=== PATIENT | female | born 1950 | race Caucasian/White ===

== ENCOUNTER 2017-09-29 09:32 | Observation (INO) ==
[2017-09-29] MEDS ORDERED: Albuterol 2.5 MG/3 ML NEBULIZER IH ONE (09:50)
[2017-09-29] MEDS ORDERED: CeFAZolin Syr 2,000MG/20 ML 2,000 MG/20 ML SYRINGE IVPB ONE (09:50)
--- NOTE | 2017-09-29 09:54 | Anesthesia Evaluation PreOp ---
Date of Encounter: 09/29/17 Time of Encounter: 09:52 - Past History Planned Operation: ACDF C6-7 Cardiac History: Denies any Significant Hx Pulmonary History: Smoker (50 years), COPD SENIOR TRIAL ATTORNEY History: TIA Other Medical History: GERD, Other (anxiety/depression) Anesthesia History: No Prior Anesthetic Complications, Past Anesthesia ( hysterectomy) Alcohol Use: heavy Drug use: none Medications and Allergies Aspirin 81 mg PO DAILY 10/22/16 [History] Omeprazole [PriLOSEC] 20 mg PO DAILY 10/22/16 [History] 3 Allergy/AdvReac Type Severity Reaction Status Date / Time No Known Allergies Allergy Verified 09/29/17 10:17 - Meds/Allergy Pre-op Review Medications Reviewed: Yes Allergies Reviewed: Yes Beta Blockers on Current Med List: No Anesthesia Results - Labs Laboratory Tests 09/24/17 09/24/17 09/24/17 11:25 11:25 11:36 WBC 7.9 Hgb 15.3 Hct 45.5 H Plt Count 316 PT 10.7 INR 1.0 APTT 30.3 Sodium 135 L Potassium 4.0 BUN 10 Creatinine 0.53 L - Imaging EKG: report reviewed (03/28/2017 SINUS RHYTHM OLD ANTEROSEPTAL MYOCARDIAL INFARCTION) Additional studies: 10/02/2011 Echo Impressions: Left Ventricle * LVEF 65 % * Left Ventricle: Normal size, function and thickness. My Category * No valvular abnormalities Interatrial Septum * Small PFO with right to left shunt. Anesthesia Exam O2 Sat Height 1.6 m Height 1.6 m Weight 84.822 kg Weight 84.822 kg O2 Sat by Pulse Oximetry 93 Vital Signs Temp Pulse Resp BP Pulse Ox 97.8 F 86 18 139/75 93 09/29/17 09:52 09/29/17 09:52 09/29/17 09:52 09/29/17 09:52 09/29/17 09:52 Height: 5'3'' Weight: 187 lbs NPO (# of Hours): 8 Pain Scale: 0 Pain Scale Used: Numeric (1 - 10) - HEENT Pupil (Motor): EOMI Mallampati: II Teeth: Edentulous (lower implant stud) Oral Opening: Greater than 3 - SENIOR TRIAL ATTORNEY LOC: Oriented SENIOR TRIAL ATTORNEY Motor: Normal RUE, Normal RLE, Normal LLE, Normal Face, Deficit LUE SENIOR TRIAL ATTORNEY Sensory: Normal: RUE, RLE, LLE, Face, Deficit: LUE - Cardiac Rhythm: Regular Murmur: None - Pulmonary Breath Sounds: bilateral Clear Respiratory Effort: Symmetrical Anesthesia Assess/Plan ASA Score: 3 Modified Malathi Scale for Level of Consciousness: Cooperative, oriented, and tranquil Anesthetic Plan: General Monitoring Plan: Standard Monitors Recovery Plan: PACU
[2017-09-29] MEDS ORDERED: Ringers Solution, Lactated 1,000 ML IVC SCH ×2 (10:00→15:09)
--- NOTE | 2017-09-29 10:56 | History & Physical Report ---
Date of Encounter: 09/29/17 Time of Encounter: 10:55 24 Hour HP Update - Instructions Instructions: If the History and Physical is less than 30 days old and was completed prior to A.M. admission and or procedure and has NOT been updated on calendar day of procedure please complete this update prior to performing procedure. - Update Patient reports changes in Medical Condition: No Changes in examination, assessment, or condition: No Changes in Medication: No Preop tests/diagnostics Reviewed: Yes Pre-Op MRSA Screen: Negative Surgery Remains Indicated: Yes Consent for Planned Operative Procedure(s) Verified: Yes - Pre-Operative Checklist Preoperative Checklist Indicated: No Prophylactic Antibiotic Ordered: Yes Home Medications Include Beta Debbie: No Beta Debbie Taken Today (Day of Surgery): No Beta Debbie Taken Yesterday (Day Prior to Surgery): No Is VTE Prophylaxis Indicated?: Yes
[2017-09-29] MEDS ORDERED: Bacitracin 50,000 UNIT, Polymyxin B Sulfate 500,000 UNIT, Sodium Chloride IRRigation 1,... IR ONE (11:25)
[2017-09-29] MEDS ORDERED: Lidocaine -MPF 4% 5 ML AMPUL ONE (11:48)
[2017-09-29] MEDS ORDERED: *HR* Midazolam HCl 5 MG/5 ML VIAL IVP ONE (12:18)
[2017-09-29] MEDS ORDERED: Dexamethasone 4 MG/ML VIAL ONE (12:18)
[2017-09-29] MEDS ORDERED: *HR* FentaNYL (PF) 100 MCG/2 ML VIAL ONE ×2 (12:18→13:39)
[2017-09-29] MEDS ORDERED: Propofol 500 MG/50 ML INFUS..BTL ONE ×2 (12:18→12:42)
[2017-09-29] MEDS ORDERED: Lidocaine -MPF 2% 2 ML VIAL ONE (12:18)
[2017-09-29] MEDS ORDERED: *HR* PHENYLEPHRINE 1,000 MCG/10 ML SYRINGE IVP ONE (12:18)
[2017-09-29] MEDS ORDERED: *HR* Remifentanil 2 MG VIAL IVP ONE (12:18)
[2017-09-29] MEDS ORDERED: Ondansetron 4 MG/2 ML VIAL ONE (12:18)
[2017-09-29] MEDS ORDERED: *HR* Propofol 200 MG/20 ML VIAL IVP ONE (12:18)
[2017-09-29] MEDS ORDERED: Ondansetron 4 MG/2 ML VIAL IVP ONE (13:05)
[2017-09-29] MEDS ORDERED: MORPHINE SUL Oral CONC 10 MG/0.5 ML ORAL.SYG SL PRN (13:05)
[2017-09-29] MEDS ORDERED: *HR* Labetalol 20 MG/4 ML SYRINGE IVP PRN (13:05)
[2017-09-29] MEDS ORDERED: *HR* OxyCODONE Immed Rel 5 MG TABLET PO PRN (13:05)
[2017-09-29] MEDS ORDERED: *HR* Meperidine 25 MG/ML SYRINGE IVP PRN (13:05)
[2017-09-29] MEDS ORDERED: *HR* Promethazine 25 MG/ML VIAL IVP PRN (13:05)
--- NOTE | 2017-09-29 13:33 | Orthopedic Operative Note ---
Date of procedure: 09/29/17 Pre-op diagnosis: Cervical stenosis, cervical radiculopathy, focal motor deficit Post-op diagnosis: same Operation/Findings: Anterior cervical decompression and fusion C6-7: The patient was brought to the operating room and placed supine on the operating room table. Successful general endotracheal anesthesia intubation was performed. Neurophysiologic monitoring personnel placed leads on the upper and lower extremities as well as the cranium for EMG monitoring purposes. Appropriate baseline potentials were noted by the neurophysiologic monitoring staff. Sexton catheter was placed prior to positioning. Compression boots and stockings were placed for deep vein thrombosis prophylaxis. Padding was also placed all bony prominences including the ulnar nerve near the medial epicondyles of the elbows were appropriately padded. Mild traction was placed on the bilateral shoulders and taped into place. Preoperative antibiotics were administered. The area from the mandible bilaterally to the upper thoraces was prepped and draped in the usual sterile fashion. A transverse incision was made at the level of the cricoid cartilage which is approximately 3 cm in length and extended from the midline of the cervical spine laterally towards the sternocleidomastoid muscle on the left. We then performed standard medial approach to the carotid sheath. Sponges were used to tease the fascial medial to the sternocleidomastoid muscle while carefully controlling and palpating the carotid artery. Using careful dissection we were able to get to the level of the anterior vertebral bodies and longus coli muscles. The spinal needle was placed at the appropriate C6-7 level, and intraoperative radiograph was obtained which was a cervical spine lateral radiograph. The needle and radiograph confirmed we were at the correct C6-7 operative level. We further exposed this level by using Bovie cautery under the medial edge of the longus coli muscles to allow them to be retracted approximately 2 mm laterally on each side. An 11 blade was used to perform anterior discectomy at the appropriate C6-7 level after an initial annulotomy of the anterior longitudinal ligament and annulus was performed. Further disc material was removed with pituitary Rongeurs. Subsequently, Synthes pins were placed at the C6 and C7 vertebral bodies respectively to provide distraction. We then used a Trimline cervical retractor which was placed in both medial and lateral as well as inferior superior direction to allow full visualization of the appropriate C6-7 disc and C6 and C7 vertebral bodies. The Leica microscope was brought to the field and the remainder of the procedure was performed under the guidance of this microscope. Using pituitary rongeurs and small curettes, various micro- instruments, a full discectomy was performed at the appropriate level. The posterior longitudinal ligament was encountered and appeared partially calcified. A portion of this ligament was removed. After complete and thorough discectomy and removal of spondylitic material was performed the endplates of the C6 and C7 vertebral bodies were prepared with a bur until allow bleeding of cancellous bone. An 8 mm trial graft was evaluated and appeared to fit quite well within the excised disc space. A cortico-cancellus allograft of 8 mm was utilized, carefully tapped into place within the excised disc space with the aid of a bone tamp. It was seated approximately 2 mm from the anterior edge of the cortex of the adjacent vertebral bodies. A cervical plate was then placed on the anterior aspect of the C6 and C7 vertebral bodies. The plate was placed in the midline position after drilling four 13 mm self tapping screws and inserting them. They were locked in place using standard Venture plate maneuvers. At this point a lateral radiograph of the cervical spine was obtained and showed satisfactory position of the graft and plate. The wound was copiously irrigated and bleeders encountered were cauterized using Bovie cautery. Platysma was closed with interrupted 2-0 Vicryl sutures. Running 3-0 Monocryl suture was used for skin closure. Sterile dressing was placed over the neck wound. The patient was transferred to a hospital bed and extubated. The patient was noted to be fully motor and sensory intact in the recovery room at the end of the procedure. The medications. All sponge instrument and needle counts were correct at the end of the procedure. Anesthesia: GETA Surgeon: Willy Jay Jr Was there an family law legal assistant present: No Estimated blood loss (cc): 9 Specimen: None Condition: stable Disposition: PACU
[2017-09-29] MEDS: *HR* FentaNYL (PF) 100 MCG/2 ML VIAL IVP PRN ×2 (14:03→14:13)
[2017-09-29] MEDS ORDERED: Acetaminophen 325 MG TABLET PO PRN (15:09)
[2017-09-29] MEDS ORDERED: Naloxone 0.4 MG/ML INJ IVP PRN (15:09)
[2017-09-29] MEDS ORDERED: Ondansetron 4 MG/2 ML VIAL IVP PRN (15:09)
--- NOTE | 2017-09-29 15:14 | Anesthesia Evaluation Post Op ---
Date of Encounter: 09/29/17 Time of Encounter: 14:45 - Vital Signs Vital Signs: Vital Signs/O2 Sat, Most Current Temp Pulse Resp BP Pulse Ox 97.0 F L 77 12 142/84 95 09/29/17 14:54 09/29/17 14:54 09/29/17 14:54 09/29/17 14:54 09/29/17 14:54 - Lungs Lungs: Clear Ascult./Percussion - Airway Airway: Non-obstructed - Cardiovascular Regular Rate - Mental Status Mental Status: Alert & Oriented, Answers Appropriately - Pain Pain Scale: 6 Pain Scale used: Numeric (1 - 10) - Nausea Vomiting Nausea Vomiting: Not Present - Hydration Hydration: Ice chips, Sexton catheter - Discharge PostOp Status: Transfer Patient to floor
[2017-09-29] MEDS: *HR* OxyCODONE Immed Rel 5 MG TABLET PO PRN ×2 (16:27→22:42)
[2017-09-29] MEDS: *HR* HYDROcodone/Acet 5/325 mg TABLET PO PRN (19:00)
[2017-09-29] MEDS: CeFAZolin Premix DUPLEX 2,000 MG/50 ML BAG IVPB SCH (19:42)
[2017-09-30] MEDS: *HR* HYDROcodone/Acet 5/325 mg TABLET PO PRN (03:04)
[2017-09-30] MEDS: CeFAZolin Premix DUPLEX 2,000 MG/50 ML BAG IVPB SCH (03:04)
[2017-09-30] MEDS: *HR* OxyCODONE Immed Rel 5 MG TABLET PO PRN (08:17)
[2017-09-30 08:43] VITALS: BP 140/80
--- NOTE | 2017-09-30 08:45 | Discharge Summary ---
Date of Encounter: 09/30/17 Time of Encounter: 08:43 - Discharge Diagnosis (1) Cervical stenosis of spinal canal Priority: Primary Status: Chronic (2) Cervical radiculopathy Priority: Secondary Status: Chronic - Discharge Medications Prescriptions: OxyCODONE Immed Rel [Roxicodone 5 MG] 5 mg PO Q6HR PRN 7 Days #30 tablet PRN Reason: Severe Pain Home Medications: Aspirin 81 mg PO DAILY 10/22/16 [History] Omeprazole [PriLOSEC] 20 mg PO DAILY 10/22/16 [History] OxyCODONE Immed Rel [Roxicodone 5 MG] 5 mg PO Q6HR PRN 7 Days #30 tablet [Rx] Allergies/Adverse Reactions: 3 Allergy/AdvReac Type Severity Reaction Status Date / Time No Known Allergies Allergy Verified 09/29/17 10:17 - Impressions ITS Impressions Cervical Spine X-Ray 09/29/17 12:40 IMPRESSION: Second intraoperative image demonstrating surgical probe along the anterior aspect of the C6-C7 disc space. Findings were discussed with Willy Jay at 12:53 pm on 09/29/2017. D/ / 09/29/2017 12:56:49 Alejandro Bauman MD / earnold Interpreting Provider: Alejandro Bauman MD Cervical Spine X-Ray 09/29/17 12:53 IMPRESSION: Anterior cervical spinal fusion of C6-7. D/ / Alejandro Bauman MD / Alejandro Bauman MD Interpreting Provider: Alejandro Bauman MD Date of admission: 09/29/17 15:10 Primary care physician: Prosper Young Consults: 09/29/17 15:09 Consult to Occupational Therapy [CONS] Routine Comment: Evaluate, develop and implement POC Reason for Consult: Postoperative rehabilitation Consult to Physical Therapy [CONS] Routine Comment: Evaluate, develop and implement POC Reason for Consult: Postoperative rehabilitation Consult to Spine Navigator [CONS] [CONS] Routine - Patient Status Disposition: Home, Self-Care Condition: Good Functional capacity at discharge: independent ambulation Overall status at discharge: patient is progressing back to baseline - Discharge Instructions Follow Up With: Prosper Young MD [Primary Care Provider] - - Diet and Activity Activity: as per physical therapy Diet: advance to your usual diet - Hospital Course Hospital course: Ms. Montalvo is a 67 year old femaleThe patient had an uneventful postoperative course. Progressed from intravenous analgesic needs to oral analgesic needs only. Remained neurovascularly intact and mobilized satisfactorily. All intraoperative and/or postoperative radiographic studies were satisfactory. Patient is discharged with plan for rehabilitation and follow-up in 2 weeks post discharge on analgesic medication and patient's home medications. - Time Spent with Patient Total time spent providing and/or coordinating discharge services: - VTE Documentation of Mechanical Device: Intermittent pneumatic compression device
[2017-09-30] MEDS ORDERED: Aspirin 81 MG TAB.CHEW PO SCH (09:00)
== END 2017-09-30 10:37 | disposition home or self-care (01) ==
LOC: SAMDAY 09:32 → INTOOBSV 15:10 → 3NENU 15:10
PROVIDERS: ADMIT Orthopaedic Surgery Orthopaedic Surgery of the Spine; ATTEND Orthopaedic Surgery Orthopaedic Surgery of the Spine

== ENCOUNTER 2020-05-02 07:34 | Observation (INO) ==
[2020-05-02] MEDS ORDERED: Aspirin 81 MG TAB.CHEW PO ONE (07:45)
[2020-05-02] MEDS ORDERED: 0.9 % Sodium Chloride 500 ML IVC ONE (07:45)
[2020-05-02 08:05] LABS: Basophils # 0.1 K/mcL (0.0-0.2); Basophils % 0.9 %; Eosinophils # 0.2 K/mcL (0.0-0.6); Eosinophils % 1.8 %; Hemoglobin 15.9 g/dL (11.5-15.4); Immature Granulocytes % 0.3 % (0-4); Lymphocytes # 3.1 K/mcL (0.6-4.6); Mean Corpuscular HGB Conc 33.8 g/dL (31.6-35.5); Mean Corpuscular Hemoglobin 32.1 pg (28.0-33.3); Mean Corpuscular Volume 94.9 fL (83.0-100.0); Mean Platelet Volume 9.2 fL (9.4-12.4); Monocytes # 0.9 K/mcL (0.0-1.3); Monocytes % 9.2 %; Neutrophils # 5.3 K/mcL (1.6-8.9); Platelet Count 322 K/mcL (140-400); Red Blood Count 4.95 M/mcL (3.82-4.97); Red Cell Distribution Width 12.1 % (11.5-14.5); Segmented Neutrophils % 55.8 %; White Blood Count 9.6 K/mcL (4.3-11.1)
[2020-05-02] MEDS ORDERED: Nitroglycerin 1 INCH/GM PACKET TP ONE (08:11)
[2020-05-02] MEDS ORDERED: Isovue-370 500 ML BOTTLE IVP ONE (08:12)
[2020-05-02 08:25] LABS: Bilirubin,Urine Negative (Negative); Blood,Urine Negative (Negative); Clarity,Urine Clear (Clear); Color,Urine Light-Yellow (Yellow); Glucose,Urine (UA) Normal (Normal); Ketones,Urine Negative (Negative); Leukocyte Esterase,Urine Negative (Negative); Nitrite,Urine Negative (Negative); Protein,Urine Negative (Neg-Trace); Specific Gravity,Urine 1.014 (1.010-1.025); Urobilinogen,Urine Normal (Normal)
[2020-05-02 08:30] LABS: Alanine Aminotransferase 19 Units/L (7-52); Albumin 4.7 g/dL (3.5-5.7); Albumin/Globulin Ratio 1.7 (1.1-2.2); Alkaline Phosphatase 129 Units/L (34-104); Aspartate Amino Transferase 38 Units/L (13-39); BUN/Creatinine Ratio 21 (6-26); Bilirubin,Indirect 0.4 mg/dL (0.0-1.0); Bilirubin,Total 0.4 mg/dL (0.3-1.0); Blood Urea Nitrogen 12 mg/dL (8-23); Calcium 9.4 mg/dL (8.6-10.3); Carbon Dioxide 26 mEq/L (23-29); Chloride 98 mEq/L (98-107); Globulin 2.8 g/dL (2.4-3.5); Glucose 106 mg/dL (70-105); Lipase 24 Units/L (11-82); Osmolality,Calculated 274 (280-300); Sodium 132 mEq/L (136-145); Total Protein 7.5 g/dL (6.4-8.9); Troponin I < 0.03 ng/mL (< 0.04); eGFR For African Americans > 60 (> 60); eGFR For Non-African Americans > 60 (> 60)
[2020-05-02 08:35] LABS: Activated Partial Thrombo Time 31.7 Seconds (26.0-36.0); Prothrombin Time 10.9 Seconds (9.4-12.1)
[2020-05-02] MEDS ORDERED: Naloxone 0.4 MG/ML INJ IVP PRN (09:25)
[2020-05-02 10:04] LABS: Adenovirus Not Detected (Not Detect); Bordetella Pertussis Not Detected (Not Detect); Chlamydophila pneumoniae Not Detected (Not Detect); Coronavirus 229E Not Detected (Not Detect); Coronavirus HKU1 Not Detected (Not Detect); Coronavirus NL63 Not Detected (Not Detect); Coronavirus OC43 Not Detected (Not Detect); Human Metapneumovirus Not Detected (Not Detect); Human Rhinovirus/Enterovirus Not Detected (Not Detect); Influenza A Subtype 2009 H1 Not Detected (Not Detect); Influenza B Not Detected (Not Detect); Mycoplasma pneumoniae Not Detected (Not Detect); Parainfluenza Virus 1 Not Detected (Not Detect); Parainfluenza Virus 2 Not Detected (Not Detect); Parainfluenza Virus 3 Not Detected (Not Detect); Parainfluenza Virus 4 Not Detected (Not Detect); Respiratory Syncytial Virus Not Detected (Not Detect); SARS-CoV-2 Not Detected (Not Detect)
[2020-05-02] MEDS: *HR* Heparin 5,000 UNIT/ML VIAL SQ SCH ×2 (15:04→21:55)
[2020-05-02] MEDS ORDERED: *HR* OxyCODONE Immed Rel 5 MG TABLET PO ONE (23:46)
[2020-05-03 01:08] LABS: Basophils # 0.1 K/mcL (0.0-0.2); Basophils % 0.6 %; Eosinophils # 0.3 K/mcL (0.0-0.6); Eosinophils % 2.5 %; Hematocrit 42.5 % (35.3-44.9); Immature Granulocytes % 0.5 % (0-4); Lymphocytes # 4.2 K/mcL (0.6-4.6); Lymphocytes % 41.3 %; Mean Corpuscular HGB Conc 33.4 g/dL (31.6-35.5); Mean Corpuscular Hemoglobin 31.7 pg (28.0-33.3); Mean Corpuscular Volume 94.9 fL (83.0-100.0); Mean Platelet Volume 9.2 fL (9.4-12.4); Monocytes % 9.9 %; Neutrophils # 4.6 K/mcL (1.6-8.9); Platelet Count 329 K/mcL (140-400); Red Blood Count 4.48 M/mcL (3.82-4.97); Red Cell Distribution Width 12.1 % (11.5-14.5); Segmented Neutrophils % 45.2 %; White Blood Count 10.3 K/mcL (4.3-11.1)
[2020-05-03 01:09] LABS: Hemoglobin 14.2 g/dL (11.5-15.4)
[2020-05-03 01:20] LABS: BUN/Creatinine Ratio 35 (6-26); Blood Urea Nitrogen 20 mg/dL (8-23); Calcium 8.7 mg/dL (8.6-10.3); Carbon Dioxide 23 mEq/L (23-29); Chloride 102 mEq/L (98-107); Glucose 100 mg/dL (70-105); Osmolality,Calculated 277 (280-300); Potassium 4.3 mEq/L (3.5-5.1); Sodium 132 mEq/L (136-145); eGFR For African Americans > 60 (> 60); eGFR For Non-African Americans > 60 (> 60)
[2020-05-03] MEDS ORDERED: Regadenoson 0.4 MG/5 ML SYRINGE IVP ONE (05:50)
[2020-05-03] MEDS: *HR* Heparin 5,000 UNIT/ML VIAL SQ SCH ×2 (06:02→16:05)
[2020-05-03 15:23] VITALS: BP 118/69
== END 2020-05-03 16:53 | disposition home or self-care (01) ==
LOC: EMEROOARM 07:34 → 3BNU 07:34
PROVIDERS: ADMIT Internal Medicine; ATTEND Internal Medicine